=== PATIENT | female | born 1970 | race Caucasian/White ===

== ENCOUNTER 2022-11-13 11:52 | Emergency (ER) | payer OTHER ==
[~2022-11-13] VITALS: Ht 160 cm; Wt 77.0 kg
[2022-11-13 12:13] VITALS: BP 138/68
== END 2022-11-13 19:18 | disposition home or self-care (01) ==
LOC: ER 11:52
DX: U07.1 COVID-19 (principal); Z28.311 Partially vaccinated for COVID-19
CPT/HCPCS: 71045; 99283